=== PATIENT | male | born 1960 | race Caucasian/White ===

== ENCOUNTER 2022-06-24 13:45 | Inpatient (IN) | payer BC ==
[2022-07-12] MEDS ORDERED: Fentanyl 100 MCG/2 ML VIAL ONE ×2 (06:34→12:21)
[2022-07-12] MEDS ORDERED: Midazolam HCl 2 mg/2 ml Vial ONE (06:34)
[2022-07-12] MEDS ORDERED: EPINEPHrine 1 MG/ML AMP ONE ×2 (06:35→07:32)
[2022-07-12] MEDS ORDERED: Lidocaine 1% (PF) 30 ML VIAL ONE ×2 (06:35→07:32)
[2022-07-12] MEDS ORDERED: Bupivacaine PF 0.5% 30 ML VIAL ONE (06:35)
[2022-07-12] MEDS ORDERED: Fentanyl 250 MCG/5 ML VIAL ONE (06:45)
[2022-07-12] MEDS ORDERED: Ketorolac Tromethamine 30 MG/ML VIAL ONE ×2 (07:01→09:02)
[2022-07-12] MEDS ORDERED: Acetaminophen 500 MG TAB ONE (07:01)
[2022-07-12 07:20] LABS: SARS-CoV-2 NAA Rapid Test Not Detected (NotDetected)
[2022-07-12] MEDS ORDERED: Bupivacaine/Epinephrine 0.25% 30 ML VIAL ONE (07:32)
[2022-07-12] MEDS ORDERED: cefOXitin 2 GM VIAL ONE ×2 (08:42→11:34)
[2022-07-12] MEDS ORDERED: Sodium Chloride 0.9% 100 ML ONE (08:42)
[2022-07-12] MEDS ORDERED: Dexamethasone 20 MG/5 ML VIAL ONE (09:02)
[2022-07-12] MEDS ORDERED: PROPOFOL 200 MG/20 ML VIAL ONE (09:02)
[2022-07-12] MEDS ORDERED: Lidocaine 1% PF 5 ML VIAL ONE (09:02)
[2022-07-12] MEDS ORDERED: Ondansetron PF 4 MG/2 ML Vial ONE (09:02)
[2022-07-12] MEDS ORDERED: ePHEDrine 50 MG/ML VIAL ONE (09:02)
[2022-07-12] MEDS ORDERED: Rocuronium Bromide 10 MG/ML (10ML VIAL) ONE (09:02)
[2022-07-12] MEDS ORDERED: Glycopyrrolate 0.2 MG/ML 5 ML SYRINGE ONE (09:02)
[2022-07-12] MEDS ORDERED: NEOSTIGMINE 3 MG/3 ML SYR 3 MG/3 ML SYRINGE ONE (09:02)
[2022-07-12] MEDS ORDERED: PHENYLEPHRINE-NS 100 MCG/ML 10 ML SYRINGE ONE (10:40)
[2022-07-12] MEDS ORDERED: Phenylephrine 10 MG/ML VIAL ONE (10:40)
[2022-07-12] MEDS ORDERED: SUGAMMADEX SODIUM 200 MG/2 ML VIAL ONE (12:01)
[2022-07-12] MEDS ORDERED: hydrALAZINE 20 MG/ML VIAL SLOW IVP PRN (12:19)
[2022-07-12] MEDS ORDERED: Promethazine HCl 25 MG/ML VIAL IM PRN (12:19)
[2022-07-12] MEDS ORDERED: Ondansetron PF 4 MG/2 ML Vial IVP PRN (12:19)
[2022-07-12] MEDS ORDERED: Non-Formulary Medication 1 EACH PO PRN (12:59)
[2022-07-12] MEDS ORDERED: Promethazine HCl 25 MG/ML VIAL IM/IV PRN (13:00)
[2022-07-12] MEDS ORDERED: Ondansetron HCl/PF 4 MG/2 ML Vial IVP PRN (13:00)
[2022-07-12] MEDS ORDERED: PACU-Morphine 4MG/ML VIAL SLOW IVP PRN (13:00)
[2022-07-12] MEDS ORDERED: Morphine Sulfate 2 MG/ML SYRINGE SLOW IVP PRN (13:00)
[2022-07-12] MEDS ORDERED: Morphine 4 MG/ML VIAL SLOW IVP PRN (13:04)
[2022-07-12] MEDS ORDERED: D5 1/2 NS w/20 mEq KCL 1,000 ML ONE (14:43)
[2022-07-12] MEDS: D5 1/2 NS w/20 mEq KCL 1,000 ML IV SCH ×2 (14:49→20:25)
[2022-07-12] MEDS ORDERED: Morphine 4 MG/ML VIAL ONE (15:14)
[2022-07-12] MEDS: Morphine 4 MG/ML VIAL SLOW IVP PRN ×2 (15:16→22:13)
[2022-07-12 16:44] VITALS: BMI 34.5
[2022-07-12] MEDS: Ketorolac Tromethamine 30 MG/ML VIAL IVP SCH ×2 (17:07→23:57)
[2022-07-12] MEDS: Famotidine 20 MG TAB PO SCH (20:26)
[2022-07-12] MEDS: Valsartan 80 MG TAB PO SCH (20:26)
[2022-07-12] MEDS: Famotidine/PF 20 mg/2ml Vial SLOW IVP SCH (20:26)
[2022-07-13] MEDS: Morphine 4 MG/ML VIAL SLOW IVP PRN ×3 (04:25→17:31)
[2022-07-13] MEDS: D5 1/2 NS w/20 mEq KCL 1,000 ML IV SCH ×2 (04:32→11:05)
[2022-07-13] MEDS: Ketorolac Tromethamine 30 MG/ML VIAL IVP SCH ×4 (05:50→23:57)
[2022-07-13 06:03] LABS: #Lymphocytes 0.8 thou/uL (1.20-3.40); #Monocytes 1.1 thou/uL (0.11-0.59); #Neutrophils 8.4 thou/uL (1.40-6.50); %Basophils 0.3 % (0.0-1.0); %Eosinophils 0.1 % (0.0-10.0); %Lymphocytes 7.9 % (21.0-51.0); %Monocytes 10.2 % (0.0-10.0); %Neutrophils 81.6 % (42.0-75.0); Hemoglobin 13.5 g/dL (14.0-18.0); Mean Corpuscular HGB CONC 33.2 g/dL (32.0-36.0); Mean Corpuscular Hemoglobin 32.6 pg (27.0-31.0); Mean Corpuscular Volume 98.2 fl (78.0-98.0); Mean Platelet Volume 7.4 fL (7.4-10.4); Platelet Count 185 10x3/uL (130-400); RBC Distribution Width 11.9 % (11.5-14.5); Red Blood Cell (RBC) Count 4.15 mill/uL (4.70-6.10); White Blood Cell (WBC) Count 10.3 10x3/uL (4.8-10.8)
[2022-07-13 06:18] LABS: Anion Gap 10 mmol/L (10-20); BUN (Urea Nitrogen) 13 mg/dL (8.4-25.7); Calc. Creatinine Clearance 113 mL/min (70-130); Calcium 7.8 mg/dL (7.8-10.44); Carbon Dioxide 27 mmol/L (23-31); Chloride 101 mmol/L (98-107); Estimated GFR 76; Glucose 170 mg/dL (80-115); Potassium 4.6 mmol/L (3.5-5.1); Sodium 133 mmol/L (136-145)
[2022-07-13] MEDS: Famotidine/PF 20 mg/2ml Vial SLOW IVP SCH ×2 (08:19→20:47)
[2022-07-13] MEDS: Enoxaparin Sodium 40 MG/0.4 ML SYRINGE SC SCH (08:19)
[2022-07-13] MEDS: Atorvastatin Calcium 40 MG TAB PO SCH (08:19)
[2022-07-13] MEDS: Valsartan 80 MG TAB PO SCH ×3 (08:19→22:05)
[2022-07-13] MEDS: Famotidine 20 MG TAB PO SCH ×2 (08:19→22:05)
[2022-07-14] MEDS: D5 1/2 NS w/20 mEq KCL 1,000 ML IV SCH (01:56)
[2022-07-14] MEDS: Ketorolac Tromethamine 30 MG/ML VIAL IVP SCH (06:31)
[2022-07-14 08:02] VITALS: BP 130/77; TEMP 97.4
[2022-07-14] MEDS: Atorvastatin Calcium 40 MG TAB PO SCH (09:51)
[2022-07-14] MEDS: Enoxaparin Sodium 40 MG/0.4 ML SYRINGE SC SCH (09:51)
[2022-07-14] MEDS: Valsartan 80 MG TAB PO SCH (09:51)
[2022-07-14] MEDS: Famotidine 20 MG TAB PO SCH (09:58)
[2022-07-14] MEDS: Famotidine/PF 20 mg/2ml Vial SLOW IVP SCH (09:58)
== END 2022-07-14 11:55 | disposition home or self-care (01) | DRG 331 ==
LOC: SURG A 07-12 05:37
PROVIDERS: ADMIT Specialist; ATTEND Specialist
PROC: 0DBN0ZZ Excision of Sigmoid Colon, Open Approach (ICD-10-PCS; principal; 2022-07-12)
PROC: 04HY32Z Insertion of Monitoring Device into Lower Artery, Percutaneous Approach (ICD-10-PCS; 2022-07-12)
DX: K57.32 Diverticulitis of large intestine without perforation or abscess without bleeding (principal); Z20.822 Contact with and (suspected) exposure to COVID-19; E78.00 Pure hypercholesterolemia, unspecified; I95.89 Other hypotension; Z79.899 Other long term (current) drug therapy; Z87.891 Personal history of nicotine dependence
CPT/HCPCS: 36415; 36416; 71045; 80048; 85025; 88307; A4649; J0171; J0694; J1100; J1650; J1885; J2001; J2250; J2270; J2370; J2405; J2704; J3010; J3480; J3490; S0020; U0002